=== PATIENT | female | born 1960 | race Caucasian/White ===

== ENCOUNTER → 2016-11-06 | Outpatient (CLI) | payer OTHER ==
--- NOTE | 2016-11-06 15:43 | MA ---
Screening Digital Mammogram With iCAD Analysis Clinical Indications: Routine screening. Technique: Standard cephalocaudal and mediolateral oblique projections were obtained. This examinatio n was processed by the iCAD computer aided detection system. Comparison: October 2015, August 2014, August 2013, June 2012, June 2011, April 2010, Ju 2008, April 2007. Breast density: Type B; Scattered fibroglandular densities. Findings: CAD was reviewed. No masses, suspicious calcifications or other signs of malignancy are id entified. There has been no significant change in the appearance of either breast. Impression: Negative mammogram. BI-RADS 1. Recommendation: Routine mammographic screening in one year as long as physical examination is negativ [facility]. Negative mammography should not preclude additional workup of a clinically suspicious finding. The patient's information is entered into a reminder system with a target due date for her next mammo gram.
== END ==
LOC: BRMIMAGING 12:51
DX: Z12.31 Encounter for screening mammogram for malignant neoplasm of breast (principal)
CPT/HCPCS: G0202

== ENCOUNTER → 2017-11-09 | Outpatient (CLI) | payer OTHER | LOC: BRMIMAGING 13:36 | PROVIDERS: ATTEND Hospitalist | DX: Z12.31 Encounter for screening mammogram for malignant neoplasm of breast (principal) ==

== ENCOUNTER → 2018-11-13 | Outpatient (CLI) | payer OTHER | LOC: BRMIMAGING 08:28 | PROVIDERS: ATTEND Hospitalist | DX: Z12.31 Encounter for screening mammogram for malignant neoplasm of breast (principal) ==